=== PATIENT | male | born 1975 | race Caucasian/White ===

== ENCOUNTER 2016-06-26 11:01 | Emergency (ER) | payer MEDICARE, OTHER ==
[2016-06-26 11:02] VITALS: BMI 17.7
[2016-06-26 11:10] VITALS: BP 144/110; PULSE 99; RESP 19; TEMP 97.4; O2SAT 98
--- NOTE | 2016-06-26 11:55 | ED PDOC ---
HPI: General Adult Time Seen by Provider: 06/26/16 11:39 Chief Complaint (Nursing): ENT Problem Chief Complaint (Provider): right decreased hearing History Per: Patient History/Exam Limitations: no limitations Onset/Duration Of Symptoms: Days (1) Have you had recent travel within the past 21 days to any of the following countries: [place], [place], [place] or [place]?: No Current Symptoms Are (Timing): Still Present Additional Complaint(s): 40 yo male with medical history of thyroidectomy on thyroid replacement presents to ED with right decreased hearing x 1 day. Patient states with sudden onset. No fever, chills, abdominal pain, chest pain, palpitations. No medications taken. No headache, visual changes, sinus pain, nasal discharge, ear discharge, ear pain, or recent trauma. PMD: Dr. Azul Past Medical History Reviewed: Historical Data, Nursing Documentation, Vital Signs Vital Signs: Last Vital Signs Temp 97.4 F L 06/26/16 11:08 Pulse 99 H 06/26/16 11:08 Resp 19 06/26/16 11:08 BP 144/110 H 06/26/16 11:08 Pulse Ox 98 06/26/16 11:55 - Medical History PMH: HTN, Hyperthyroidism Denies: Alzheimer's Disease, Anemia, Anxiety, Arthritis, Asthma, Bipolar Disorder, Bronchitis, Cardia Arrhythmia, CHF, Colonic Polyps, COPD, Crohn's Disease, Dementia, Depression, Diverticulitis, Emphysema, Fibromyalgia, Fractures, Gastritis, Gall Bladder Disease, HIV, Hypercholesterolemia, Hypothyroidism, Kidney Stones, Migraine, Mitral Valve Prolapse, Multiple Sclerosis, Osteoporosis, Pancreatitis, Paranoia, Parkinson's Disease, Peripheral Edema, Pneumonia, Post Traumatic Stress Disorder, Pulmonary Embolism , Chronic Kidney Disease, Rheumatoid Arthritis, Schizophrenia, Seizures, Sickle Cell Disease, Sexually Transmitted Disease, TIA - Surgical History Surgical History: Other surgeries: thyroidectomy - Family History Family History: States: No Known Family Hx - Home Medications Home Medications: Ambulatory Orders Medication Instructions Recorded Propranolol Hydrochloride [Inderal] 10 mg PO DAILY 07/23/12 methIMAzole [Tapazole] 20 mg PO TID 07/23/12 Carbamide Peroxide [Debrox Ear 5 drop AD BID #1 bottle 06/26/16 Drops] - Allergies Allergies/Adverse Reactions: Allergies Allergy/AdvReac Type Severity Reaction Status Date / Time No Known Allergies Allergy Verified 06/26/16 11:25 Review of Systems ROS Statement: Except As Marked, All Systems Reviewed And Found Negative ENT: Negative for: Ear Pain, Ear Discharge Physical Exam - Reviewed Nursing Documentation Reviewed: Yes Vital Signs Reviewed: Yes - Physical Exam Appears: Positive for: Well, Non-toxic, No Acute Distress Head Exam: Positive for: ATRAUMATIC, NORMAL INSPECTION, NORMOCEPHALIC Skin: Positive for: Normal Color, Warm, Dry Eye Exam: Positive for: Normal appearance, EOMI, PERRL ENT: Positive for: TM Is/Are (impacted with cerumen R > L), Hearing Is ( decreased on right side). Negative for: Sinus Pain/Drainage, Nasal Congestion, Pharyngeal Erythema, Tonsillar Exudate Neck: Positive for: Normal, Painless ROM, Supple Cardiovascular/Chest: Positive for: Regular Rate, Rhythm Respiratory: Positive for: Normal Breath Sounds. Negative for: Decreased Breath Sounds Gastrointestinal/Abdominal: Positive for: Normal Exam, Bowel Sounds, Soft. Negative for: Tenderness Back: Positive for: Normal Inspection Extremity: Positive for: Normal ROM. 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 Plan: * Attempt with manual removal of cerumen, with minimal cerumen removed though with improved hearing. * Discharge home with peroxide drops to soften cerumen * Follow up with PCP Disposition - Clinical Impression Clinical Impression: Impacted cerumen of right ear - Disposition Referrals: Farideh Kelley [Medical Doctor] - Disposition Time: 12:00 Condition: STABLE Additional Instructions: Follow up with PMD in 2-3 day. If worsening, return to ED as soon as possible. Prescriptions: Carbamide Peroxide [Debrox Ear Drops] 5 drop AD BID #1 bottle Instructions: Cerumen Impaction (ED)
== END 2016-06-26 12:24 | disposition home or self-care (01) ==
LOC: H.ER 11:01
DX: H90.5 Unspecified sensorineural hearing loss (principal)